=== PATIENT | female | born 1945 | race Caucasian/White ===

== ENCOUNTER → 2018-06-30 14:09 | Outpatient (BNVA) | payer MEDICARE, BC, SELFPAY | PROVIDERS: PCP Family Medicine; Visit Provider Psychiatry & Neurology Neurology | DX: R13.12 Dysphagia, oropharyngeal phase (principal); J44.9 Chronic obstructive pulmonary disease, unspecified; I10 Essential (primary) hypertension | CPT/HCPCS: 99205 ==

== ENCOUNTER 2018-12-29 15:22 | Outpatient (REF) | payer MEDICARE, BC, SELFPAY ==
[2018-12-29 19:07] LABS: HCT 50.7 % (36.0-46.0); HGB 17.2 g/dL (12.0-15.5); Mean Corp. HGB Concentration 33.9 g/dL (32.0-36.0); Mean Corpuscular Hemoglobin 30.9 pg (27.0-33.0); Platelet Count 161 x1000/uL (130-400); RBC 5.57 m/cumm (4.00-5.20); RBC Distribution Width 14.1 % (11.7-14.6)
[2018-12-29 19:38] LABS: ALT 31 U/L (12-78); AST 20 U/L (15-37); Albumin 3.5 g/dL (3.4-5.0); Alkaline Phosphatase 97 U/L (46-116); Anion Gap 11.1 mmol/L (3-11); BUN 30 mg/dL (7-18); Bilirubin, Total 0.6 mg/dL (0.2-1.0); CO2 24.9 mmol/L (21.0-32.0); CREATININE 1.15 mg/dL (0.55-1.02); Chloride 106 mmol/L (98-107); Estimated GFR 46.13 (mL/min/1.73m2); Glucose 84 mg/dL (70-100); LDL CHOLESTEROL 116 mg/dL (<100); Potassium 4.8 mmol/L (3.5-5.1); Sodium 142 mmol/L (136-145); TSH 2.67 uIU/mL (0.358-3.74); Total Protein 7.1 g/dL (6.4-8.2)
[2018-12-29 19:51] LABS: Vitamin D 25 Total 18.3 ng/ml (30-100)
[2018-12-29 19:53] LABS: Calcium 9.2 mg/dL (8.5-10.1)
[2018-12-29 20:09] LABS: FREE T4 1.05 ng/dL (0.76-1.46)
[2018-12-31 11:43] LABS: Measles IgG Antibody Positive
== END 2018-12-29 15:42 ==
LOC: NCHCN 15:22
PROVIDERS: PCP Family Medicine; Visit Provider Internal Medicine
DX: I10 Essential (primary) hypertension (principal); R63.4 Abnormal weight loss; Z01.84 Encounter for antibody response examination; E55.9 Vitamin D deficiency, unspecified
CPT/HCPCS: 80053; 82306; 83721; 85027; 84439; 84443; 86765

== ENCOUNTER 2019-01-28 15:27 | Outpatient (REF) | payer MEDICARE, BC, SELFPAY | END 2019-01-28 15:47 | LOC: NCHCN 15:27 | PROVIDERS: PCP Physician Assistant Medical; Visit Provider Physician Assistant Medical | DX: N39.0 Urinary tract infection, site not specified (principal) | CPT/HCPCS: 87077; 87086; 87186 ==

== ENCOUNTER 2019-07-06 14:51 | Outpatient (REF) | payer MEDICARE, BC, SELFPAY ==
[2019-07-06 19:06] LABS: ALT 28 U/L (14-59); AST 21 U/L (15-37); Albumin 3.9 g/dL (3.4-5.0); Alkaline Phosphatase 103 U/L (46-116); Anion Gap 11.7 mmol/L (3-11); BUN 30 mg/dL (7-18); Bilirubin, Total 0.7 mg/dL (0.2-1.0); CO2 25.3 mmol/L (21.0-32.0); CREATININE 1.19 mg/dL (0.55-1.02); Calcium 9.4 mg/dL (8.5-10.1); Chloride 106 mmol/L (98-107); Estimated GFR 44.34 (mL/min/1.73m2); Glucose 82 mg/dL (70-100); Potassium 4.1 mmol/L (3.5-5.1); Sodium 143 mmol/L (136-145); Total Protein 7.7 g/dL (6.4-8.2)
[2019-07-06 19:30] LABS: HCT 47.1 % (36.0-46.0); HGB 15.8 g/dL (12.0-15.5); Mean Corp. HGB Concentration 33.5 g/dL (32.0-36.0); Mean Corpuscular Hemoglobin 31.7 pg (27.0-33.0); Mean Corpuscular Volume 94.4 fL (80-95); Mean Platelet Volume 11.5 fL (8.0-11.0); Platelet Count 203 x1000/uL (130-400); RBC 4.99 m/cumm (4.00-5.20); RBC Distribution Width 13.8 % (11.7-14.6); White Blood Cell Count 8.76 k/cumm (4.4-10.8)
[2019-07-07 20:17] LABS: HIV-1/2 Ag & Ab Screen Negative (Negative)
[2019-07-08 12:02] LABS: Hepatitis C Ab w Rflx HCV PCR Negative (Negative)
== END 2019-07-06 15:11 ==
LOC: NCHCO 14:51
PROVIDERS: PCP Physician Assistant Medical; Visit Provider Internal Medicine
DX: I10 Essential (primary) hypertension (principal); R63.4 Abnormal weight loss; J44.9 Chronic obstructive pulmonary disease, unspecified; Z11.4 Encounter for screening for human immunodeficiency virus [HIV]; Z11.59 Encounter for screening for other viral diseases
CPT/HCPCS: 80053; 85027; 86803; 87389

== ENCOUNTER 2020-05-17 16:37 | Outpatient (REF) | payer MEDICARE, BC, SELFPAY | END 2020-05-17 16:57 | LOC: NCHCN 16:37 | PROVIDERS: PCP Physician Assistant Medical; Visit Provider Nurse Practitioner Family | DX: N39.0 Urinary tract infection, site not specified (principal) | CPT/HCPCS: 87077; 87086; 87186 ==

== ENCOUNTER 2020-07-11 16:05 | Outpatient (REF) | payer MEDICARE, BC, SELFPAY ==
[2020-07-11 19:39] LABS: INR 1.4 (0.9-1.1); Prothrombin Time 13.8 sec (9.3-11.0)
[2020-07-11 19:43] LABS: MCH 31.6 pg (27.0-33.0); MCHC 32.9 % (32.0-36.0); MCV 96.2 fL (80-95); Platelet Count 164 10^3/uL (130-400); RBC 5.47 10^6/uL (3.93-5.22); RDW-SD 52.7 fL; WBC 8.36 10^3/uL (4.4-10.8)
[2020-07-11 19:44] LABS: PTT Activated 26.3 sec (21.0-27.5)
[2020-07-11 19:45] LABS: HCT 52.6 % (36.0-46.0); HGB 17.3 g/dL (11.2-15.7)
[2020-07-11 20:03] LABS: D-Dimer 1094 ng/mlFEU (<500)
[2020-07-11 20:33] LABS: Albumin 3.4 g/dL (3.4-5.0); Anion Gap 10.9 mmol/L (3-11); BUN 30 mg/dL (7-18); CO2 25.1 mmol/L (21.0-32.0); CREATININE 1.15 mg/dL (0.55-1.02); Calcium 9.1 mg/dL (8.5-10.1); Chloride 104 mmol/L (98-107); Glucose 86 mg/dL (74-106); NT-proBNP 9929 pg/mL (<300); PHOSPHORUS 4.3 mg/dL (2.6-4.7); Potassium 4.2 mmol/L (3.5-5.1); Sodium 140 mmol/L (136-145)
== END 2020-07-11 16:25 ==
LOC: NCHCN 16:05
PROVIDERS: PCP Physician Assistant Medical; Visit Provider Internal Medicine
DX: R60.9 Edema, unspecified (principal)
CPT/HCPCS: 80069; 85027; 83880; 85379; 85610; 85730

== ENCOUNTER 2021-05-12 16:54 | Outpatient (REF) | payer MEDICARE, BC, SELFPAY ==
[2021-05-12 18:40] LABS: HCT 51.4 % (36.0-46.0); HGB 16.6 g/dL (11.2-15.7); MCH 31.6 pg (27.0-33.0); MCHC 32.3 % (32.0-36.0); MCV 97.9 fL (80-95); MPV 11.6 fL (8.0-11.0); Platelet Count 146 10^3/uL (130-400); RBC 5.25 10^6/uL (3.93-5.22); RDW 15.2 % (11.7-14.6); RDW-SD 54.2 fL; WBC 6.19 10^3/uL (4.4-10.8)
[2021-05-12 19:13] LABS: ALT 18 U/L (14-59); AST 21 U/L (15-37); Albumin 3.4 g/dL (3.4-5.0); Alkaline Phosphatase 140 U/L (46-116); Anion Gap 9.3 mmol/L (3-11); BUN 19 mg/dL (7-18); Bilirubin, Total 1.2 mg/dL (0.2-1.0); CO2 27.7 mmol/L (21.0-32.0); Calcium 8.4 mg/dL (8.5-10.1); Chloride 109 mmol/L (98-107); Estimated GFR 53.91 (mL/min/1.73m2); Glucose 76 mg/dL (74-106); Potassium 4.1 mmol/L (3.5-5.1); Sodium 146 mmol/L (136-145); Total Protein 7.2 g/dL (6.4-8.2)
== END 2021-05-12 16:55 | disposition home or self-care (01) ==
LOC: NCHCN 16:54
PROVIDERS: PCP Physician Assistant Medical; Visit Provider Internal Medicine
DX: R60.0 Localized edema (principal); D75.1 Secondary polycythemia; R63.4 Abnormal weight loss; R13.10 Dysphagia, unspecified
CPT/HCPCS: 80053; 85027